=== PATIENT | female | born 1995 | race Two or more races ===

== ENCOUNTER 2017-02-05 12:30 | Inpatient (IN) | payer BC, MEDICAID ==
[~2017-02-05] VITALS: Ht 157.5 cm; Wt 74.4 kg
--- NOTE | ~2017-02-05 | DS ---
PATIENT'S NAME: LUCILA DUKES [facility] AGE: 21 Y [address] ROOM: [place] [address] LOCATION: [facility] ADMIT DATE: 02/05/2017 Discharge Summary DISCHARGE DATE: 02/06/2017 FAMILY PHYSICIAN: Champ Jones MD ATTENDING PHYSICIAN: Vee Tucker FINAL DIAGNOSIS: Prior section at term labor. PROCEDURE PERFORMED: On 02/04/2017, repeat low transverse section and spinal anesthesia. REASON FOR HOSPITALIZATION: Lucila Hodges is a 21-year-old female who is admitted for spontaneous rupture of membranes and labor. She has had a prior section necessitating a repeat section as such, it was performed upon. ADMISSION LABORATORY STUDIES: The patient's discharge hemoglobin and hematocrit were 11.4 and 32.7 respectively. White blood cell count was 9.2. The patient umbilical arterial cord blood gases revealed a pH is 7.29 and the base deficit of 5. HOSPITAL COURSE: The patient was admitted to [facility] on 02/05/2017. She was taken to the operating room. She was given Unasyn for IV antibiotic prophylaxis. She would deliver a viable 7 pounds 9 ounce male infant. were 9 at 1 minute, 10 at 5 minutes under spinal anesthesia. She had unremarkable postoperative course. Pain was initially managed with Toradol and Percocet. Later changed, however, to Motrin and Percocet. Jessica was discontinued on postoperative day #1 without incident. Initially, kept n.p.o. and quickly advanced clear liquid and regular diet. On 02/06/2017, she was having normal urine and bowel function and have been doing well with good pain control and subsequently discharged in good condition. DISCHARGE MEDICATIONS: She is to resume her outpatient medications and she is given a prescription for Motrin and Percocet. VEE TUCKER MD DHW/modl /[id number] d: 02/09/17 0810 t: 02/12/17 0937, DISCHARGE SUMMARY
--- NOTE | ~2017-02-05 | OR ---
PATIENT'S NAME: LUCILA DUKES [facility] AGE: 21 Y [address] ROOM: [place] [address] LOCATION: [facility] ADMIT DATE: 02/05/2017 OR/Procedure Report DISCHARGE DATE: 02/07/2017 FAMILY PHYSICIAN: Champ Jones MD ATTENDING PHYSICIAN: Vargas Tucker SURGEON: Vargas Tucker MD MANAGER OF COMMUNITY RELATIONS: Dr. Ruma Santiago. Dr. Santiago's assistance was required due to the complexity of the case as well as in compliance with [facility] guidelines. DATE OF PROCEDURE: 02/05/2017 PREOPERATIVE DIAGNOSIS: Prior section at term, labor. POSTOPERATIVE DIAGNOSIS: Prior section at term, labor. PROCEDURE: Repeat low-transverse section. ANESTHESIA: Spinal. ESTIMATED BLOOD LOSS: 500 mL. CLINICAL INDICATION: Lucila Hodges is a 21-year-old female, 2, para 1, at term. She has had a prior section. She now presents in labor. She understood the indications, procedures, risks, and alternatives. Informed consent was previously obtained in the office. FINDINGS: Delivery of a viable, 7-pound 9-ounce male infant, score 9 at 1 minute and 10 at 5 minutes. umbilical, arterial cord blood gas revealed a pH of 7.29. TECHNICAL PROCEDURES: The patient was taken to the operating room, given spinal anesthesia with good results, placed in a supine position with right hip roll, prepped and draped in the usual fashion. A Pfannenstiel skin incision was made with a scalpel. Old scar was excised sharply. Subcutaneous tissue was dissected sharply. Fascial incision was performed sharply. Linea alba was dissected free of the rectus muscles using a combination of sharp and blunt dissection. Rectus muscles were split sharply in the midline. Peritoneum was incised sharply in the midline. Bladder flap was created. Myometrium was incised with a scalpel. Endometrial cavity was entered bluntly. Uterine incision was extended bluntly. At this point in time, there was a rapid and easy delivery of a viable, 7-pound 9-ounce male infant, score 9 at 1 minute and 10 at 5 minutes. The umbilical cord was doubly clamped, the intervening segment was cut. Infant was handed off to the awaiting nursing services. umbilical, arterial cord blood and venous cord blood were obtained for blood gas analysis and routine studies PATIENT'S NAME: LUCILA DUKES [facility] AGE: 21 Y [address] ROOM: [address] [address] LOCATION: [facility] ADMIT DATE: 02/05/2017 OR/Procedure Report DISCHARGE DATE: 02/07/2017 FAMILY PHYSICIAN: Champ Jones MD ATTENDING PHYSICIAN: Vargas Tucker respectively. Placenta was delivered spontaneously intact with 3 vessels. Exploration of the uterine cavity noted no residual placental or amniotic membranes. Uterine incision was closed with running, continually locking stitch of 0 chromic suture followed by a second imbricating layer consisting of a running continuous stitch of 0 chromic suture. Good hemostasis was obtained. Bladder flap was closed with running continuous stitch of 2-0 Vicryl suture. Abdomen was inspected, any blood or blood clots were retrieved. Tubes and ovaries were normal bilaterally. Abdominal peritoneum was closed with running continuous stitch of 2-0 suture. Fascial incision was closed with 2 running continuous stitches of 0 Vicryl suture tied in the midline. Subcutaneous tissue was reapproximated using running continuous stitch of 2-0 Vicryl suture. Skin was closed with running continuous subcuticular stitch of 4-0 Vicryl suture. Sponge, needle, and instrument counts were correct. The patient tolerated the procedure well and was taken to the recovery room in good condition. MD DANO ELLSWORTH/cristhianl /[id number] d: 02/09/17 1351 t: 02/12/17 0939, OPERATIVE SUMMARY
[~2017-02-05 12:30] MED LIST: BRETHINE2.5 MG PO; PRENATAL 1+1)(P1 TAB PO
[2017-02-05 13:19] LABS: BASOPHIL % 0.1 %; EOSINOPHIL % 0.3 %; HEMATOCRIT 37.9 % (33.0-46.0); HEMOGLOBIN 12.7 g/dL (11.0-15.0); IMMATURE GRANULOCYTE # 0.1 K/uL (0.0-0.3); IMMATURE GRANULOCYTE % 0.8 %; LYMPHOCYTE # 1.3 K/uL (0.8-4.0); MCH 30.7 pg (27.0-34.0); MCHC 33.5 gm/dL (32.0-36.5); MCV 91.5 fl (83.0-98.0); MONOCYTE # 0.4 K/uL (0.0-1.0); MONOCYTE % 5.5 %; MPV 10.2 fl (9.4-12.4); NEUTROPHIL # (ANC) 5.4 K/uL (1.8-7.8); NEUTROPHIL % 75.3 %; NRBC % 0 /100WBC (0-0.00); PLATELET COUNT 187 K/uL (150-450); RBC 4.14 M/uL (3.50-5.00); RDW-CV 14.1 % (11.9-14.6); WBC 7.1 K/uL (4.0-11.0)
[2017-02-05 14:43] LABS: BICARBONATE 22.3 mmol/L (18.0-23.0); PCO2 47 mmHg (35-45); PO2 18 mmHg (80-90)
--- NOTE | 2017-02-06 05:08 | NUR ---
VSS, FUNDUS FIRM, AT UMBILICUS, SCANT FLOW. PT VOIDS W/O DIFFICULTIES. UP WITH STAND BY ASSISTANCE. PT IN ROOM ALONE AT THIS TIME. WILL BE BACK THIS AM. LAST DOSE OF TORADOL AND 1 PERCOCET GIVEN AT 0300. PT HAS DENIED PAIN ALL NIGHT.
[2017-02-06 05:22] LABS: BASOPHIL % 0.1 %; EOSINOPHIL % 0.1 %; HEMATOCRIT 32.7 % (33.0-46.0); HEMOGLOBIN 11.4 g/dL (11.0-15.0); IMMATURE GRANULOCYTE # 0.1 K/uL (0.0-0.3); IMMATURE GRANULOCYTE % 0.5 %; LYMPHOCYTE # 1.6 K/uL (0.8-4.0); MCH 31.7 pg (27.0-34.0); MCHC 34.9 gm/dL (32.0-36.5); MCV 90.8 fl (83.0-98.0); MONOCYTE # 0.7 K/uL (0.0-1.0); MONOCYTE % 7.2 %; MPV 10.3 fl (9.4-12.4); NEUTROPHIL # (ANC) 6.9 K/uL (1.8-7.8); NEUTROPHIL % 75.1 %; NRBC % 0 /100WBC (0-0.00); PLATELET COUNT 170 K/uL (150-450); RDW-CV 13.9 % (11.9-14.6); WBC 9.2 K/uL (4.0-11.0)
--- NOTE | 2017-02-07 04:56 | NUR ---
VSS, FUNDUS FIRM, EVEN, SMALL FLOW. 1 PERCOCET AND A MOTRIN GIVEN AT 0230. PT UP AD LOY IN ROOM. NEEDS TO WATCH THE VIDEOS WHEN HER GETS BACK TODAY. PLANS HOME TODAY.
[2017-02-07] MEDS ORDERED: MOTRIN800 MG PO (09:34)
[2017-02-07] MEDS ORDERED: PRENATAL 1+1)(P1 TAB PO (09:34)
[2017-02-07] MEDS ORDERED: PERCOCET 5-3251 EACH PO (09:35)
== END 2017-02-07 14:45 | disposition disaster alternative care site (69) | DRG 766 ==
LOC: GOBS 12:30
PROVIDERS: ADMIT Obstetrics & Gynecology
PROC: 10D00Z1 Extraction of Products of Conception, Low, Open Approach (ICD-10-PCS; principal; 2017-02-05)
DX: O34.211 Maternal care for low transverse scar from previous cesarean delivery (principal); Z37.0 Single live birth; Z3A.39 39 weeks gestation of pregnancy
CPT/HCPCS: J0295; J1885; J7120